=== PATIENT | male | born 1945 | race Caucasian/White ===

== ENCOUNTER 2018-11-22 08:16 | Outpatient (CLI) | payer OTHER | END 2018-11-22 08:18 | disposition home or self-care (01) | LOC: SONOGRAMA 08:16 | DX: N40.1 Benign prostatic hyperplasia with lower urinary tract symptoms (principal) ==

== ENCOUNTER → 2019-01-31 15:28 | Outpatient (CLI) | payer OTHER | END | disposition home or self-care (01) | LOC: LAB 15:28 | DX: R97.20 Elevated prostate specific antigen [PSA] (principal) ==

== ENCOUNTER 2019-08-17 05:40 | Day surgery (SDC) | payer OTHER | END 2019-08-18 08:00 | disposition home or self-care (01) | LOC: CIR.AMB 05:40 → SURH 13:53 → CIR.AMB 13:53 → SURH 08-18 12:19 | DX: N40.1 Benign prostatic hyperplasia with lower urinary tract symptoms (principal); N41.0 Acute prostatitis; R33.8 Other retention of urine ==

== ENCOUNTER 2021-09-16 05:40 | Day surgery (SDC) | payer OTHER ==
[2021-09-16] MEDS ORDERED: POLY119PG PO (09:34)
[2021-09-16] MEDS ORDERED: PERCOCET 5-3251 EACH PO (09:34)
[2021-09-16] MEDS ORDERED: NEURONTIN600 M1 PO (09:34)
== END 2021-09-16 11:35 | disposition home or self-care (01) ==
LOC: CIR.AMB 05:40
PROVIDERS: ATTEND Surgery
DX: K40.91 Unilateral inguinal hernia, without obstruction or gangrene, recurrent (principal); Z20.822 Contact with and (suspected) exposure to COVID-19

== ENCOUNTER 2022-01-05 06:43 | Day surgery (SDC) | payer OTHER ==
[~2022-01-05 06:43] MED LIST: NEURONTIN600 M1 PO; PERCOCET 5-3251 EACH PO; POLY119PG PO
== END 2022-01-05 12:00 | disposition home or self-care (01) ==
LOC: CIR.AMB 06:43
PROVIDERS: ATTEND Orthopaedic Surgery Hand Surgery
DX: B07.8 Other viral warts (principal); I48.92 Unspecified atrial flutter; M19.90 Unspecified osteoarthritis, unspecified site